=== PATIENT | male | born 1960 | race Caucasian/White ===

== ENCOUNTER 2017-06-01 06:29 | Day surgery (SDC) | payer OTHER ==
[~2017-06-01 06:29] MED LIST: RINGER'S SOLUTION,LACTATED 1,000 ML IV PRN; ceFAZolin SODIUM 1 GM VIAL IV PRN
--- NOTE | 2017-06-01 10:02 | OR ---
Operative Report - Dictated Report Narrative: Date: 06/01/2017 Physician: Richard Ivory M.D. Annealer: Gerald Hernandez PA-C Preoperative diagnosis: Right Shoulder rotator cuff tear Postoperative diagnosis: Right Shoulder rotator cuff tear, biceps tendinopathy, degenerative labral tear Procedure: Right shoulder arthroscopy with mini open rotator cuff repair, biceps tenodesis, labral debridement Anesthesia: General plus regional Complications: None Estimated blood loss: Minimal Specimens: Tendon for disposal Retained implants: [employer] 4.5 mm peek helicoil anchor 4, footprint anchor 2 Drains: None Indications: Mr. Hayes Is a 56 year-old gentleman who has been followed in my clinic with complaints of shoulder pain consistent with rotator cuff tear secondary to work- related injury. Physical exam and diagnostic imaging were consistent with his complaints and concern for full-thickness rotator cuff tear. Conservative measures have failed including, but not limited to, passage of time, activity modification, medications, physical therapy/home exercise program, or injections. The risks, benefits, and alternatives were discussed in clinic. The risks being , bleeding, infection, blood clots, nerve, tendon, ligament , blood vessel injury, persistent pain, arthrosis, stiffness, need for prolonged therapy, need for additional procedures, and persistent symptoms. Consent was obtained in the clinic. Procedure: After marking the correct extremity in the preoperative holding area, a timeout was performed in the operating room. IV antibiotics consisting of Ancef were administered prior to the procedure. A general followed by regional anesthetic was induced by the nurse furnace repairer helper per my request. This was in the supine position, then the patient was transitioned to a beachchair position with all bony prominences well-padded, head in neutral, the nonoperative arm well supported, and the legs padded with SCDs in place. The operative shoulder was then prepped and draped in a standard sterile fashion. Preoperatively the shoulder had full passive range of motion, and no gross instability. After marking out the bony landmarks, saline was infused into the joint through a posterior lateral portal site. A christine incision was made, and the blunt trocar and cannula was introduced into the shoulder joint. An accessory portal was placed in the rotator cuff interval using a spinal needle for guidance. Upon initial evaluation, the biceps tendon showed significant tendinopathy with greater than 50% tear of the intra-articular portion as it inserted onto the labrum. The middle glenohumeral ligament was intact. Subscapularis tendon was unremarkable. The glenoid showed no arthrosis. The humeral head articular surface showed no arthrosis. The anterior labrum was frayed but intact. The superior labrum was frayed but intact. The pouch was unremarkable. The posterior labrum was unremarkable. The supraspinatus tendon was torn and retracted to the articular surface. This involved the anterior portion of the infraspinatus as well. The infraspinatus tendon was intact posteriorly but torn anteriorly. And attempt was made to tag the biceps tendon but secondary to the amount of tearing this is not possible. A arthroscopic scissor was utilized in order to perform a tenotomy as it inserted on the labrum secondary to the significant tendinopathy of the remaining tendon. A lateral sensory portal was made and a shaver was utilized in order to debride the rotator cuff tendon as well as the tuberosity. The anterior and superior labrum were debrided down to stable margins well. Attention was then turned to the subacromial space. Subacromial bursectomy was performed utilizing the prior portals. The coracoacromial ligament was frayed but intact. The bursal side of the rotator cuff demonstrated a full- thickness tear as identified intra-articularly. The acromial arch was unremarkable. Based on the arthroscopic findings, as well as exam and radiographic findings, it was elected to proceed with a mini open rotator cuff repair. A longitudinal incision centered over the previously identified rotator cuff tear was made just off the edge of the acromion. This was approximately 5 centimeters in length. The deltoid fascia was split sharply in line with its fibers, and blunt dissection was carried through the deltoid muscle. Any remaining subacromial bursal tissue was debrided in order to expose the underlying rotator cuff tear. The rotator cuff tear appeared to be U-shaped orientation. The biceps tendon was then identified in the groove. The groove was rongeured and debrided of its soft tissues and a helicoil anchor was placed into the groove in order to tenodesis the biceps at this point. The extra tendon was then excised. The biceps was placed in normal made attention and tenodesed extra articularly. We then returned to the rotator cuff tendon. The tuberosity was debrided of its soft tissues producing a bleeding bed for the tendon to be secured to. 3 4.5 mm PEEK helicoil anchor was placed just off the articular surface of the humeral head. A series of horizontal mattress sutures were placed at the prepared edge of the rotator cuff. This allowed for a tension-free return of the tendon to the greater tuberosity. The sutures were then passed longitudinally into 2 4.5 mm PEEK footprint anchor. This was performed and a suture bridge technique. This gave good overall compression to the rotator cuff at the insertion site. The shoulders place a range of motion and had no lift off of the repair site as well as no crepitance or signs of impingement. Full passive range of motion was able to be obtained. Once it was felt that the rotator cuff was adequately repaired, the wounds were thoroughly irrigated. 0 Vicryl was utilized in order to repair the deltoid fascia. 3-0 Monocryl was placed in the subcutaneous tissue. The rotator cuff incision as well as the portal sites were closed with interrupted nylon. Dressings consisting of Xeroform, 4 x 4, ABD, soft roll, and tape were applied. All sponge, needle, blade, and instrument counts were correct prior to closing the wounds. The patient was awoken and transferred to the postanesthesia care unit in stable condition.
[2017-06-01] MEDS ORDERED: RINGER'S SOLUTION,LACTATED 1,000 ML IV ONE (10:10)
--- NOTE | 2017-06-01 10:15 | OR ---
Anesthesia Procedure Note - Anesthesia Procedure Note Date of Service: 06/01/17 Narrative: Vital Signs - Last Taken Temp 36.2 C L 06/01/17 07:21 Pulse 72 06/01/17 07:21 Resp 16 06/01/17 07:21 BP 142/81 06/01/17 07:21 Pulse Ox 96 06/01/17 07:21 O2 Oxygen Delivery Method Room Air 06/01/17 10:12 ANESTHESIA PROCEDURE NOTE Date of Procedure: 06/01/2017. Time of procedure: 744. Performed by: Tay Lott CRNA Consulting Practice Manager: None. Preprocedure diagnosis: Right rotator cuff tear. Post procedure diagnosis: Same. Procedure: Right ultrasound guided interacalene nerve block for postoperative analgesia. Indications: The patient is a 56 -year-old male, who is requesting a right ultrasound-guided interscalene nerve block for postoperative analgesia. Findings: See below. Details of the procedure: The tissue over the intended target site was cleansed with ChloraPrep. 1 ml Lidocaine 1 % was infiltrated to the skin and subcutaneous tissue. Under sterile technique and ultrasound guidance a 22-gauge block needle was inserted to the right braclial plexus nerve bundle between the anterior scalene and the middle scalene muscles. 40 mL's of 0.5% bupivacaine plus epinephrine 1 200,000 was injected after negative aspiration for blood. Needle tip and spread of local anesthetic around the brachial plexus was observed throughout the injection with ultrasound visualization. The needle was removed intact. No complications were noted. The images were retained in the hospital medical database . EBL: Minimal. Fluids: N/A. Specimen: N/A. Post procedure condition: The patient tolerated the procedure well. No complications were noted. Thank you for this consultation. Tay Lott CRNA
[2017-06-01] MEDS ORDERED: ONDANSETRON HCL/PF 2 MG/ML VIAL IV PRN (10:16)
[2017-06-01] MEDS ORDERED: INSULIN REGULAR, HUMAN 100 UNITS/ML VIAL SC ONE (10:40)
[2017-06-01 11:45] VITALS: BP 143/80
== END 2017-06-01 06:30 | disposition home or self-care (01) ==
LOC: AMB 06:29
PROVIDERS: ATTEND Orthopaedic Surgery
PROC: 0LQ10ZZ Repair Right Shoulder Tendon, Open Approach (ICD-10-PCS; 2017-06-01)
PROC: 0LS30ZZ Reposition Right Upper Arm Tendon, Open Approach (ICD-10-PCS; 2017-06-01)
PROC: 0RHJ04Z Insertion of Internal Fixation Device into Right Shoulder Joint, Open Approach (ICD-10-PCS; 2017-06-01)
PROC: 3E0T3BZ Introduction of Anesthetic Agent into Peripheral Nerves and Plexi, Percutaneous Approach (ICD-10-PCS; 2017-06-01)
PROC: 0RBJ4ZZ Excision of Right Shoulder Joint, Percutaneous Endoscopic Approach (ICD-10-PCS; principal; 2017-06-01 08:00)
DX: M75.101 Unspecified rotator cuff tear or rupture of right shoulder, not specified as traumatic (principal); S43.401A Unspecified sprain of right shoulder joint, initial encounter; M75.21 Bicipital tendinitis, right shoulder; I10 Essential (primary) hypertension; E78.5 Hyperlipidemia, unspecified; E03.9 Hypothyroidism, unspecified; E11.9 Type 2 diabetes mellitus without complications; E66.9 Obesity, unspecified; Z68.32 Body mass index [BMI] 32.0-32.9, adult; F17.200 Nicotine dependence, unspecified, uncomplicated